=== PATIENT | female | born 1955 | race Asian ===

== ENCOUNTER 2022-04-18 14:04 | Emergency (ER) | payer OTHER ==
[~2022-04-18] VITALS: Ht 154.9 cm; Wt 59.0 kg
[2022-04-18 14:11] VITALS: BP_SYST 119
[2022-04-18] MEDS ORDERED: KETAMINE HCL 500 MG/10 ML VIAL IVP ONE (15:15)
[2022-04-18] MEDS ORDERED: MIDAZOLAM HCL 5 MG/5 ML VIAL IVP ONE (15:15)
[2022-04-18] MEDS ORDERED: HYDROcodone/ACETAMIN 5-325 MG TAB (NORCO/ VICODIN) PO ONE (16:00)
[2022-04-18] MEDS ORDERED: IBUPROFEN 600 MG TABLET PO ONE (16:00)
[2022-04-18] MEDS ORDERED: IBUP-1969 PO (16:30)
[2022-04-18] MEDS ORDERED: HYDR-3917 PO (16:30)
[2022-04-18 16:57] VITALS: BP_SYST 136
== END 2022-04-18 17:02 | disposition home or self-care (01) ==
LOC: SED 14:04
DX: S52.532A Colles' fracture of left radius, initial encounter for closed fracture (principal); Z79.899 Other long term (current) drug therapy; W18.39XA Other fall on same level, initial encounter; Y93.89 Activity, other specified; Y92.89 Other specified places as the place of occurrence of the external cause; Y99.8 Other external cause status
CPT/HCPCS: 25605; 73100; 73110; 99152; 99285; J2250